=== PATIENT | female | born 1950 | race Caucasian/White ===

== ENCOUNTER → 2023-03-17 06:51 | Outpatient (REF) | payer MEDICARE, BC, SELFPAY | LOC: PAVMRI 06:51 | PROVIDERS: ATTENDING PHYSICIAN Physical Medicine & Rehabilitation; FAMILY PHYSICIAN Physician Assistant | DX: M54.16 Radiculopathy, lumbar region (principal) | CPT/HCPCS: 72148 ==

== ENCOUNTER → 2023-03-20 07:47 | Outpatient (REF) | payer MEDICARE, BC, SELFPAY | LOC: RCS 07:47 | PROVIDERS: ATTENDING PHYSICIAN Physical Medicine & Rehabilitation; FAMILY PHYSICIAN Physician Assistant | DX: Z01.818 Encounter for other preprocedural examination (principal) | CPT/HCPCS: 93005 ==

== ENCOUNTER → 2023-04-19 13:44 | Outpatient (REF) | payer MEDICARE, BC, SELFPAY | LOC: WDC 13:44 | PROVIDERS: ATTENDING PHYSICIAN Obstetrics & Gynecology; FAMILY PHYSICIAN Physician Assistant | DX: Z12.31 Encounter for screening mammogram for malignant neoplasm of breast (principal) | CPT/HCPCS: 77063; 77067 ==

== ENCOUNTER → 2023-05-07 10:08 | Outpatient (REF) | payer MEDICARE, BC, SELFPAY | LOC: DHCBC MAIN 10:08 | PROVIDERS: ATTENDING PHYSICIAN Internal Medicine; FAMILY PHYSICIAN Physician Assistant | DX: I10 Essential (primary) hypertension (principal); I45.2 Bifascicular block | CPT/HCPCS: 93306 ==

== ENCOUNTER → 2024-04-24 08:04 | Outpatient (REF) | payer MEDICARE, BC, SELFPAY | LOC: WDC 08:04 | PROVIDERS: ATTENDING PHYSICIAN Physician Assistant | DX: Z12.31 Encounter for screening mammogram for malignant neoplasm of breast (principal) | CPT/HCPCS: 77063; 77067 ==

== ENCOUNTER → 2024-07-17 16:13 | Outpatient (REF) | payer MEDICARE, BC, SELFPAY | LOC: CLAB 16:13 | PROVIDERS: ATTENDING PHYSICIAN Surgery | DX: K62.82 Dysplasia of anus (principal) | CPT/HCPCS: 88305 ==